=== PATIENT | female | born 1970 | race Caucasian/White ===

== ENCOUNTER 2017-06-17 09:00 | Emergency (ER) | payer SELFPAY ==
[~2017-06-17] VITALS: Ht 175.3 cm; Wt 145.2 kg
[~2017-06-17 09:00] MED LIST: ACE500 PO; ACET1TAB; CLI150 PO; CLIN300C99 PO; CYCL10TA29 PO; HYDR-4305 PO; HYDR-4309 PO; IBUP-1618 PO; IBUP800T37 PO; LOR5/325 PO; MEDR10TA57 PO; ORAGEL; OXYC-865 PO; PER PO; PRED20TA6 PO; PROM-110 PO; birth control PO
--- NOTE | 2017-06-17 09:17 | ER Report ---
History and Physical Time Seen By MD: 09:17 Hx. of Stated Complaint: N/V/D FOR 2-3 DAYS. RIGHT SIDED ABDOMINAL PAIN. HPI/ROS CHIEF COMPLAINT: Abdominal pain HISTORY OF PRESENT ILLNESS: This is a 46 year old female. She has had 3 days of abdominal pain. Epigastric and right upper quadrant. Steadily worsening. Nausea and vomiting. Worsens with trying to eat or drink. Only taking sips of water today, and this causes vomiting. Having explosive diarrhea the last 2 days as well. Has some congestion and cough with some congestion. Pain worsens with movement, but also will worsen in waves. Has had workup of gallbladder in the past with ultrasound and HIDA scan that did not show problems. No problems like this since, but pain is very similar. No problems with dysuria, frequency, urgency or other urinary problems. REVIEW OF SYSTEMS: Constitutional: No fever or chills. Eyes: No vision changes. ENT: No sore throat. No congestion. Cardiovascular: No chest pain. Respiratory: No shortness of breath. Gastrointestinal: As above. Genitourinary: As above. Musculoskeletal: No back pain. No extremity pain. Skin: No rashes. Neurological: No weakness. No headache. Allergies: Coded Allergies: Penicillins (Verified Allergy, Mild, 06/17/17) codeine (Verified Allergy, Mild, 06/17/17) erythromycin base (Verified Allergy, Mild, 06/17/17) nitrofurantoin (Unverified Allergy, Unknown, 06/17/17) Home Meds Reported Medications Gabapentin (GABAPENTIN) 600 Mg Tablet, 600 MG PO TID 06/17/17 Discontinued Scripts Ondansetron (ZOFRAN ODT) 4 Mg Tab.rapdis, 4 MG PO Q6H Y for NAUSEA/VOMITING, # 20 TAB.MARYJANE 0 Refills Prov:CATRACHITA CALDERON MD 06/17/17 Hydrocodone Bit/Acetaminophen (HYDROCODON-ACETAMINOPHEN 5-325) 1 Each Tablet, 1 EACH PO Q4H Y for PAIN, #12 TAB 0 Refills Prov:CATRACHITA CALDERON MD 06/17/17 Hydrocodone Bit/Acetaminophen (NORCO 5-325 TABLET) 1 Each Tablet, 1 EACH PO QID for 7 Days, #20 TAB Prov:LAUREN PITTS MD 12/15/16 Reviewed Nurses Notes: Yes Hx Smoking: Yes Smoking Status: Former Smoker Exposure to Second Hand Smoke?: No Hx Substance Use Disorder: No Hx Alcohol Use: No Constitutional Vital Sign - Last 24 Hours 06/17/17 06/17/17 06/17/17 06/17/17 09:00 09:09 09:09 09:30 Temp 98.5 Pulse ??? 91 Resp 18 B/P (MAP) 122/43 (69) 122/43 111/41 (64) Pulse Ox 98 95 O2 Delivery Room Air 06/17/17 06/17/17 06/17/17 06/17/17 10:00 10:30 10:33 11:11 Pulse 70 71 61 Resp 18 B/P (MAP) 99/63 (75) 101/54 (70) 114/53 (73) Pulse Ox 97 96 98 O2 Delivery Nasal Cannula O2 Flow Rate 1 Intake and Output 06/17/17 06/17/17 06/18/17 15:00 23:00 07:00 Intake Total 1000 ml Balance 1000 ml Physical Exam General Appearance: The patient is alert. She is in acute distress and tears from pain. Eyes: Pupils are equal, round. Reactive to light. No pallor, injection or icterus. Extraocular movements are intact. ENT: Mucous membranes are moist. Normal oral mucosa. Posterior oropharynx with some erythema and post nasal drainage. Tympanic membranes with effusions bilaterally, but no color change or bulging. Normal canals. Neck: Supple and non tender. Some shotty lymphadenopathy. Respiratory: Breathing easily and unlabored. Lungs are clear to auscultation. Cardiovascular: Regular rate and rhythm. No murmurs, gallops or rubs. Normal capillary refill. Gastrointestinal: Abdomen is soft, tender in the epigastric and right upper quadrant. Nondistended. Guarding, but no rebound. No masses or organomegaly. Normal active bowel sounds. No costovertebral angle tenderness with percussion. Neurological: Alert and oriented x3. Skin: Warm and dry. No rashes. Musculoskeletal: Extremities are nontender. No tenderness in palpation of the back and also the cervical, thoracic and lumbar spine. DIFFERENTIAL DIAGNOSIS: After history and physical exam, differential diagnosis was considered for abdominal pain including but not limited to cholecystitis, gastritis and urinary tract infection. With the congestion present, most likely this will represent a viral gastroenteritis/viral syndrome Medical Decision Making Data Points Result Diagram: 06/17/17 0912 06/17/17 0912 Laboratory Hematology Test 06/17/17 09:11 06/17/17 09:12 Stool Occult Blood (IFOB) Positive (NEGATIVE) Influenza Virus Type A (PCR) Negative (NEGATIVE) Influenza Virus Type B (PCR) Negative (NEGATIVE) Red Blood Count 5.53 M/uL (4.17-5.56) Mean Corpuscular Volume 89.4 fL (80.0-96.0) Mean Corpuscular Hemoglobin 30.6 pg (26.0-33.0) Mean Corpuscular Hemoglobin Concent 34.2 g/dL (32.0-36.0) Red Cell Distribution Width 13.6 % (11.5-14.5) Mean Platelet Volume 8.6 fL (7.2-11.1) Neutrophils (%) (Auto) 64.2 % (39.4-72.5) Lymphocytes (%) (Auto) 22.4 % (17.6-49.6) Monocytes (%) (Auto) 12.1 % (4.1-12.4) Eosinophils (%) (Auto) 0.7 % (0.4-6.7) Basophils (%) (Auto) 0.6 % (0.3-1.4) Nucleated RBC Relative Count (auto) 0.0 /100WBC Neutrophils # (Auto) 4.9 K/uL (2.0-7.4) Lymphocytes # (Auto) 1.7 K/uL (1.3-3.6) Monocytes # (Auto) 0.9 K/uL (0.3-1.0) Eosinophils # (Auto) 0.1 K/uL (0.0-0.5) Basophils # (Auto) 0.0 K/uL (0.0-0.1) Nucleated RBC Absolute Count (auto) 0.00 K/uL Urine Color Yellow Urine Clarity Slightly-cloudy Urine pH 6.0 pH (4.8-9.5) Urine Specific [place] 1.021 Urine Protein Negative mg/dL (NEGATIVE) Urine Glucose (UA) Negative mg/dL (NEGATIVE) Urine Ketones 20 mg/dL (NEGATIVE) Urine Blood Negative (NEGATIVE) Urine Nitrite Negative (NEGATIVE) Urine Bilirubin Negative (NEGATIVE) Urine Urobilinogen Negative mg/dL (0.2-1.9) Urine Leukocyte Esterase Negative (NEGATIVE) Urine RBC None /HPF (0-2/HPF) Urine WBC 1 /HPF (0-5/HPF) Urine Squamous Epithelial Cells Many /LPF (</=FEW) Urine Bacteria Negative /HPF (NONE-FEW) Urine Mucus Few /HPF (NONE-FEW) Sodium Level 133 mmol/L (137-145) Potassium Level 3.9 mmol/L (3.5-5.0) Chloride Level 101 mmol/L (98-107) Carbon Dioxide Level 21 mmol/L (22-31) Blood Urea Nitrogen 15 mg/dl (7-18) Creatinine 0.80 mg/dl (0.52-1.04) Glomerular Filtration Rate Calc > 60.0 Random Glucose 99 mg/dl (75-110) Lactate 1.4 mmol/L (0.7-2.1) Calcium Level 9.2 mg/dl (8.4-10.2) Total Bilirubin 1.0 mg/dl (0.2-1.3) Aspartate Amino Transf (AST/SGOT) 49 U/L (0-35) Alanine Aminotransferase (ALT/SGPT) 53 U/L (0-56) Alkaline Phosphatase 98 U/L (0-126) C-Reactive Protein 5.8 mg/dl (<1.0) Total Protein 8.0 gm/dl (6.3-8.2) Albumin 4.3 g/dl (3.5-5.0) Amylase Level 54 U/L (0-110) Lipase 80 U/L (23-300) Human Chorionic Gonadotropin, Qual Negative (NEGATIVE) Helicobacter pylori IgG Antibody Negative (NEGATIVE) Chemistry Test 06/17/17 09:11 06/17/17 09:12 Stool Occult Blood (IFOB) Positive (NEGATIVE) Influenza Virus Type A (PCR) Negative (NEGATIVE) Influenza Virus Type B (PCR) Negative (NEGATIVE) White Blood Count 7.6 k/uL (4.5-11.0) Red Blood Count 5.53 M/uL (4.17-5.56) Hemoglobin 16.9 g/dL (12.0-16.0) Hematocrit 49.4 % (34.0-47.0) Mean Corpuscular Volume 89.4 fL (80.0-96.0) Mean Corpuscular Hemoglobin 30.6 pg (26.0-33.0) Mean Corpuscular Hemoglobin Concent 34.2 g/dL (32.0-36.0) Red Cell Distribution Width 13.6 % (11.5-14.5) Platelet Count 219 K/uL (150-450) Mean Platelet Volume 8.6 fL (7.2-11.1) Neutrophils (%) (Auto) 64.2 % (39.4-72.5) Lymphocytes (%) (Auto) 22.4 % (17.6-49.6) Monocytes (%) (Auto) 12.1 % (4.1-12.4) Eosinophils (%) (Auto) 0.7 % (0.4-6.7) Basophils (%) (Auto) 0.6 % (0.3-1.4) Nucleated RBC Relative Count (auto) 0.0 /100WBC Neutrophils # (Auto) 4.9 K/uL (2.0-7.4) Lymphocytes # (Auto) 1.7 K/uL (1.3-3.6) Monocytes # (Auto) 0.9 K/uL (0.3-1.0) Eosinophils # (Auto) 0.1 K/uL (0.0-0.5) Basophils # (Auto) 0.0 K/uL (0.0-0.1) Nucleated RBC Absolute Count (auto) 0.00 K/uL Urine Color Yellow Urine Clarity Slightly-cloudy Urine pH 6.0 pH (4.8-9.5) Urine Specific [place] 1.021 Urine Protein Negative mg/dL (NEGATIVE) Urine Glucose (UA) Negative mg/dL (NEGATIVE) Urine Ketones 20 mg/dL (NEGATIVE) Urine Blood Negative (NEGATIVE) Urine Nitrite Negative (NEGATIVE) Urine Bilirubin Negative (NEGATIVE) Urine Urobilinogen Negative mg/dL (0.2-1.9) Urine Leukocyte Esterase Negative (NEGATIVE) Urine RBC None /HPF (0-2/HPF) Urine WBC 1 /HPF (0-5/HPF) Urine Squamous Epithelial Cells Many /LPF (</=FEW) Urine Bacteria Negative /HPF (NONE-FEW) Urine Mucus Few /HPF (NONE-FEW) Glomerular Filtration Rate Calc > 60.0 Lactate 1.4 mmol/L (0.7-2.1) Calcium Level 9.2 mg/dl (8.4-10.2) Total Bilirubin 1.0 mg/dl (0.2-1.3) Aspartate Amino Transf (AST/SGOT) 49 U/L (0-35) Alanine Aminotransferase (ALT/SGPT) 53 U/L (0-56) Alkaline Phosphatase 98 U/L (0-126) C-Reactive Protein 5.8 mg/dl (<1.0) Total Protein 8.0 gm/dl (6.3-8.2) Albumin 4.3 g/dl (3.5-5.0) Amylase Level 54 U/L (0-110) Lipase 80 U/L (23-300) Human Chorionic Gonadotropin, Qual Negative (NEGATIVE) Helicobacter pylori IgG Antibody Negative (NEGATIVE) Urinalysis Test 06/17/17 09:12 Urine Color Yellow Urine Clarity Slightly-cloudy Urine pH 6.0 pH (4.8-9.5) Urine Specific [place] 1.021 Urine Protein Negative mg/dL (NEGATIVE) Urine Glucose (UA) Negative mg/dL (NEGATIVE) Urine Ketones 20 mg/dL (NEGATIVE) Urine Blood Negative (NEGATIVE) Urine Nitrite Negative (NEGATIVE) Urine Bilirubin Negative (NEGATIVE) Urine Urobilinogen Negative mg/dL (0.2-1.9) Urine Leukocyte Esterase Negative (NEGATIVE) Urine RBC None /HPF (0-2/HPF) Urine WBC 1 /HPF (0-5/HPF) Urine Squamous Epithelial Cells Many /LPF (</=FEW) Urine Bacteria Negative /HPF (NONE-FEW) Urine Mucus Few /HPF (NONE-FEW) EKG/Imaging Imaging EXAMINATION: CT Abdomen and Pelvis With Contrast 06/17/2017 9:23 AM HISTORY: epigastric and right upper quadrant pain TECHNIQUE: Spiral scan was through the abdomen and pelvis during injection of nonionic iodinated intravenous contrast. Contrast: 75 mL of IV Isovue 370. One of the following dose optimization techniques was utilized in the performance of this exam: Automated exposure control; adjustment of the mA and/ or kV according to the patient's size; or use of an iterative reconstruction technique. Specific details can be referenced in the facility's radiology CT exam operational policy. COMPARISON STUDIES: Abdominal ultrasound 10/30/2014. FINDINGS: Liver / biliary: Gallbladder is full but not hydropic and does not appear to be inflamed by CT. No visible cholelithiasis or significant biliary dilatation. Elongated Chloe's lobe configuration of the liver. Incidental focal fat or perfusional variation in the left lobe along the fissure for ligamentum teres. Pancreas: negative Spleen: negative Adrenal glands: negative Kidneys / retroperitoneum: Small cortical and parapelvic cysts. No acute finding. Pelvic structures: Prior hysterectomy. Neither ovary is readily visible. Bowel / peritoneum / mesenteries: Mild diverticulosis of the distal colon. No acute focal diverticular inflammation or diffuse colitis. Normal appendix. Small bowel is unremarkable. Stomach is not distended. Vessels: Mesenteric vasculature is grossly patent. Musculoskeletal / Body wall: Small fatty medical hernia. Lumbosacral spondylosis. Scattered small bone islands. Lymph node assessment: negative Lower chest: negative IMPRESSION: No significant acute abnormality of the abdomen or pelvis. Report Dictated By: Carlos Melendez MD at 06/17/2017 10:12 AM ED Course/Re-evaluation Clinical Indication for ER IV: Hydration, IV Access ED Course After the initial history and physical exam, the patient was given Dilaudid 1mg IV and Zofran 4mg IV. She was given a liter of normal saline. Pain and nausea improved. CT scan and labs are unremarkable. Influenza negative. This appears to be a viral syndrome with gastroenteritis. Recommended follow-up with [facility] for re-evaluation. Home with Zofran and Lortab for nausea and pain. Decision to Disposition Date: Jun 17, 2017 Decision to Disposition Time: 10:57 Depart Departure Latest Vital Signs Vital Signs Date Time Temp Pulse Resp B/P (MAP) Pulse Ox O2 Delivery O2 Flow Rate FiO2 06/17/17 11:11 61 18 114/53 (73) 98 Nasal Cannula 1 06/17/17 09:09 98.5 Impression: Primary Impression: Gastroenteritis Additional Impression: Viral syndrome Condition: Improved Disposition: HOME OR SELF-CARE Referrals: VENTURA BAUM MD (PCP) Patient Instructions: Gastroenteritis (ED), Viral Syndrome (ED) Additional Instructions: Rest and increase fluid intake. Take Lortab 5/325 every 4 hours as needed for pain. Ibuprofen 200mg, take 4 every 8 hours as needed for pain. Take Zofran 4mg, one every 6 hours as needed for nausea. Follow-up with the [facility] as planned this week. Problem Qualifiers CATRACHITA CALDERON MD Jun 17, 2017 09:17
[2017-06-17] MEDS ORDERED: NS(*) 0.9% 1000 ML BAG 1,000 ML IV ONE (09:23)
[2017-06-17] MEDS ORDERED: ONDANSETRON 4 MG/2 ML VIAL IVP ONE (09:25)
[2017-06-17] MEDS ORDERED: HYDROmorphone(ER ONLY) 1 MG/ML IVP ONE (09:25)
[2017-06-17] MEDS ORDERED: PANTOPRAZOLE SOD 40 MG IV VIAL IVP ONE (09:25)
[2017-06-17 09:29] LABS: PLATELET COUNT, AUTOMATED 219 K/uL (150-450)
[2017-06-17] MEDS ORDERED: IOPAMIDOL 76% 75 ML INFUS BTL 75 ML ONE (09:40)
[2017-06-17] MEDS ORDERED: NS 0.9% 20 ML SDV 60 ML ONE (09:40)
--- NOTE | 2017-06-17 10:25 | RADIOLOGY IMAGING REPORT ---
[place] [facility] [place] NAME: Tequila Sanchez : 1970 MR: [id number] V: [id number] EXAM DATE: ORDERING PHYSICIAN: CATRACHITA CALDERON TECHNOLOGIST: Location: [facility] - [place] Patient: Tequila Sanchez : 1970 Visit/Account:[id number] Date of Sevice: 06/17/2017 EXAMINATION: CT Abdomen and Pelvis With Contrast 06/17/2017 9:23 AM HISTORY: epigastric and right upper quadrant pain TECHNIQUE: Spiral scan was through the abdomen and pelvis during injection of nonionic iodinated in travenous contrast. Contrast: 75 mL of IV Isovue 370. One of the following dose optimization techniques was utilized in the performance of this exam: Autom ated exposure control; adjustment of the mA and/or kV according to the patient's size; or use of an i terative reconstruction technique. Specific details can be referenced in the facility's radiology C T exam operational policy. COMPARISON STUDIES: Abdominal ultrasound 10/30/2014. FINDINGS: Liver / biliary: Gallbladder is full but not hydropic and does not appear to be inflamed by CT. No vi sible cholelithiasis or significant biliary dilatation. Elongated Chloe's lobe configuration of the liver. Incidental focal fat or perfusional variation in the left lobe along the fissure for ligamentu m teres. Pancreas: negative Spleen: negative Adrenal glands: negative Kidneys / retroperitoneum: Small cortical and parapelvic cysts. No acute finding. Pelvic structures: Prior hysterectomy. Neither ovary is readily visible. Bowel / peritoneum / mesenteries: Mild diverticulosis of the distal colon. No acute focal diverticula r inflammation or diffuse colitis. Normal appendix. Small bowel is unremarkable. Stomach is not diste nded. Vessels: Mesenteric vasculature is grossly patent. Musculoskeletal / Body wall: Small fatty medical hernia. Lumbosacral spondylosis. Scattered small bon e islands. Lymph node assessment: negative Lower chest: negative IMPRESSION: No significant acute abnormality of the abdomen or pelvis. Report Dictated By: Carlos Melendez MD at 06/17/2017 10:12 AM Report E-Signed By: Carlos Melendez MD at 06/17/2017 10:20 AM WSN:[id number]
[2017-06-17] MEDS ORDERED: APAP/HYDROCODONE 325/5 TAB PO ONE (10:55)
[2017-06-17] MEDS ORDERED: ONDANSETRON 4 MG ODT TABDP SL ONE (10:55)
[2017-06-17] MEDS ORDERED: ONDA4TAB PO (10:58)
[2017-06-17] MEDS ORDERED: LOR5/325 PO (10:58)
[2017-06-17] MEDS ORDERED: GABA-503 PO (11:07)
[2017-06-17 11:11] VITALS: BP 114/53
== END 2017-06-17 11:34 | disposition home or self-care (01) ==
LOC: ER 09:32
DX: K52.9 Noninfective gastroenteritis and colitis, unspecified (principal); B34.9 Viral infection, unspecified
CPT/HCPCS: 74177; 81001; 82150; 82274; 83605; 83690; 84703; 85025; 86140; 86677; 87502; 96361; 96374; 96375; 99284; C9113; J1170; J2405; J7030; J7050; Q9967; S0119; 82040; 82247; 82310; 82374; 82435; 82565; 82947; 84075; 84132; 84155; 84295; 84450; 84460; 84520

== ENCOUNTER 2017-12-11 08:20 | Emergency (ER) | payer SELFPAY ==
[~2017-12-11 08:20] MED LIST changes: +GABA-503 PO; +ONDA4TAB PO
[2017-12-11] MEDS ORDERED: ASPIRIN 81 MG CHEW PO ONE (08:55)
[2017-12-11] MEDS ORDERED: NS(*) 0.9% 1000 ML BAG 1,000 ML IV ONE (08:55)
[2017-12-11] MEDS ORDERED: NITROGLYCERIN 0.4 MG SUBL SL ONE ×2 (08:55→09:50)
[2017-12-11] MEDS ORDERED: ACETAMINOPHEN 325 MG TAB PO ONE (08:55)
--- NOTE | 2017-12-11 09:05 | EKG ---
[place] [facility] [place] JORDYN SCHILLING : [id number] MR: [id number] V: [id number] EXAM DATE: ORDERING PHYSICIAN: SKYE JAY TECHNOLOGIST: AILYN Test Reason : Blood Pressure : / mmHG Vent. Rate : 068 BPM Atrial Rate : 068 BPM P-R Int : 184 ms QRS Dur : 088 ms QT Int : 382 ms P-R-T Axes : 018 -40 000 degrees QTc Int : 406 ms Normal sinus rhythm Left axis deviation Inferior infarct , age undetermined Abnormal ECG No previous ECGs available Confirmed by ELISSA PALOMO ([id number]) on 12/11/2017 1:53:20 PM Referred By: Confirmed By:ELISSA PALOMO
[2017-12-11 09:12] LABS: PLATELET COUNT, AUTOMATED 230 K/uL (150-450)
--- NOTE | 2017-12-11 09:31 | RADIOLOGY IMAGING REPORT ---
FACILITY: [facility] PATIENT NAME: Tequila Sanchez : 1970 MR: [id number] V: [id number] EXAM DATE: ORDERING PHYSICIAN: SKYE JAY TECHNOLOGIST: Location: [facility] [place] Patient: Tequila Sanchez : 1970 Visit/Account:[id number] Date of Sevice: 12/11/2017 EXAMINATION: PA and Lateral Chest 12/11/2017 8:52 AM HISTORY: Chest Pain COMPARISON: None FINDINGS: Cardiomediastinal contours: Normal Lungs and pleura: Normal Bones/soft tissues: Degenerative spurring along the spine. IMPRESSION: No acute cardiopulmonary abnormality. Report Dictated By: Carlos Melendez MD at 12/11/2017 9:26 AM Report E-Signed By: Carlos Melendez MD at 12/11/2017 9:28 AM WSN:[id number]
--- NOTE | 2017-12-11 09:31 | ER Report ---
History and Physical Time Seen By MD: 08:55 Hx. of Stated Complaint: L SIDE CHEST PAIN, SOB, DIZZY HPI/ROS CHIEF COMPLAINT: Chest pain. HISTORY OF PRESENT ILLNESS: pt developed l sided chest/breast pain last night at 9pm. Pain radiates to l axilla, not to back. Pain has been constant though fluctuates. No prior episodes. Continues now (12 hrs), not associated with exertion. Associated with sob; specifically pain with taking a deep breath. No diaphoresis, occ lightheaded REVIEW OF SYSTEMS: Constitutional: No fever, no chills. Eyes: No discharge. ENT: No sore throat. Respiratory: As above. Cardiac: As above. Gastrointestinal: No abdominal pain, no vomiting. Genitourinary: No hematuria. Musculoskeletal: No back pain. Skin: No rashes. Neurological: No headache. Remainder of the 14 system rev: Yes Allergies: Coded Allergies: Penicillins (Verified Allergy, Mild, 06/17/17) codeine (Verified Allergy, Mild, 06/17/17) erythromycin base (Verified Allergy, Mild, 06/17/17) nitrofurantoin (Unverified Allergy, Unknown, 06/17/17) Home Meds Discontinued Reported Medications Gabapentin (GABAPENTIN) 600 Mg Tablet, 600 MG PO TID 06/17/17 Reviewed Nurses Notes: Yes Hx Smoking: Yes Smoking Status: Former Smoker Exposure to Second Hand Smoke?: No Hx Substance Use Disorder: No Hx Alcohol Use: No Family History of: Other (pt adopted and does not know) Constitutional Vital Sign - Last 24 Hours 12/11/17 12/11/17 12/11/17 12/11/17 08:20 08:23 08:24 08:30 Temp 98.1 Pulse ??? 72 Resp 22 B/P (MAP) 142/75 (97) 142/75 116/83 (94) Pulse Ox 97 O2 Delivery Ambu-Bag 12/11/17 12/11/17 12/11/17 12/11/17 08:35 08:50 09:00 09:05 Pulse 70 68 ??? Resp 31 14 15 B/P (MAP) 114/86 (95) ???/??? (1665) Pulse Ox 96 97 97 12/11/17 12/11/17 12/11/17 12/11/17 09:15 09:30 09:35 09:45 Pulse 64 Resp 14 B/P (MAP) 107/68 (81) 116/63 (80) 106/66 (79) Pulse Ox 98 12/11/17 12/11/17 12/11/17 12/11/17 09:50 10:00 10:05 10:07 Pulse ??? 60 65 Resp 0 B/P (MAP) 96/64 (75) Pulse Ox 96 12/11/17 12/11/17 12/11/17 12/11/17 10:12 10:15 10:27 10:30 Pulse 60 55 Resp 8 14 B/P (MAP) 98/71 (80) 105/71 (82) Pulse Ox 98 93 12/11/17 12/11/17 12/11/17 12/11/17 10:42 10:45 10:57 11:00 Pulse 56 58 Resp 15 37 B/P (MAP) 85/53 (64) 106/61 (76) Pulse Ox 92 96 12/11/17 12/11/17 12/11/17 11:12 11:20 11:27 Pulse 53 57 Resp 0 10 B/P (MAP) 109/57 (74) Pulse Ox 96 97 Physical Exam General Appearance: The patient is alert, has no immediate need for airway protection and no signs of toxicity. Pt does appear uncomfortable, holding l chest Eyes: Pupils equal and round no pallor or injection. ENT, Mouth: Mucous membranes are moist. Respiratory: There are no retractions, lungs are clear to auscultation. Cardiovascular: Regular rate and rhythm. no carotid bruit Gastrointestinal: Abdomen is soft and non tender, no masses, bowel sounds normal. Neurological: [ ] Skin: Warm and dry, no rashes. Musculoskeletal: Neck is supple non tender. Extremities are nontender, nonswollen and have full range of motion. [ ] DIFFERENTIAL DIAGNOSIS: After history and physical exam differential diagnosis was considered for chest pain including but not limited to myocardial ischemia, pericarditis pulmonary embolus, chest wall pain, pleural inflammation and pulmonary infectious causes. Medical Decision Making Data Points Result Diagram: 12/11/1782612/11/17826 Laboratory Hematology Test 12/11/17 08:27 12/11/17 12:08 Red Blood Count 5.06 M/uL (4.17-5.56) Mean Corpuscular Volume 90.8 fL (80.0-96.0) Mean Corpuscular Hemoglobin 31.8 pg (26.0-33.0) Mean Corpuscular Hemoglobin Concent 35.0 g/dL (32.0-36.0) Red Cell Distribution Width 13.7 % (11.5-14.5) Mean Platelet Volume 9.4 fL (7.2-11.1) Neutrophils (%) (Auto) 56.7 % (39.4-72.5) Lymphocytes (%) (Auto) 32.3 % (17.6-49.6) Monocytes (%) (Auto) 8.0 % (4.1-12.4) Eosinophils (%) (Auto) 2.2 % (0.4-6.7) Basophils (%) (Auto) 0.8 % (0.3-1.4) Nucleated RBC Relative Count (auto) 0.0 /100WBC Neutrophils # (Auto) 4.8 K/uL (2.0-7.4) Lymphocytes # (Auto) 2.7 K/uL (1.3-3.6) Monocytes # (Auto) 0.7 K/uL (0.3-1.0) Eosinophils # (Auto) 0.2 K/uL (0.0-0.5) Basophils # (Auto) 0.1 K/uL (0.0-0.1) Nucleated RBC Absolute Count (auto) 0.00 K/uL D-Dimer Quantitative (PE/DVT) < 0.27 ug/ml (0-0.50) Sodium Level 142 mmol/L (137-145) Potassium Level 4.2 mmol/L (3.5-5.0) Chloride Level 107 mmol/L (98-107) Carbon Dioxide Level 25 mmol/L (22-31) Blood Urea Nitrogen 15 mg/dl (7-18) Creatinine 0.80 mg/dl (0.52-1.04) Glomerular Filtration Rate Calc > 60.0 Random Glucose 103 mg/dl (75-110) Calcium Level 9.3 mg/dl (8.4-10.2) Total Bilirubin 0.5 mg/dl (0.2-1.3) Aspartate Amino Transf (AST/SGOT) 34 U/L (0-35) Alanine Aminotransferase (ALT/SGPT) 28 U/L (0-56) Alkaline Phosphatase 83 U/L (0-126) B-Type Natriuretic Peptide 26 pg/ml (0-100) Total Protein 7.5 g/dl (6.3-8.2) Albumin 4.4 g/dl (3.5-5.0) Troponin I < 0.012 ng/ml Chemistry Test 12/11/17 08:27 12/11/17 12:08 White Blood Count 8.4 k/uL (4.5-11.0) Red Blood Count 5.06 M/uL (4.17-5.56) Hemoglobin 16.1 g/dL (12.0-16.0) Hematocrit 46.0 % (34.0-47.0) Mean Corpuscular Volume 90.8 fL (80.0-96.0) Mean Corpuscular Hemoglobin 31.8 pg (26.0-33.0) Mean Corpuscular Hemoglobin Concent 35.0 g/dL (32.0-36.0) Red Cell Distribution Width 13.7 % (11.5-14.5) Platelet Count 230 K/uL (150-450) Mean Platelet Volume 9.4 fL (7.2-11.1) Neutrophils (%) (Auto) 56.7 % (39.4-72.5) Lymphocytes (%) (Auto) 32.3 % (17.6-49.6) Monocytes (%) (Auto) 8.0 % (4.1-12.4) Eosinophils (%) (Auto) 2.2 % (0.4-6.7) Basophils (%) (Auto) 0.8 % (0.3-1.4) Nucleated RBC Relative Count (auto) 0.0 /100WBC Neutrophils # (Auto) 4.8 K/uL (2.0-7.4) Lymphocytes # (Auto) 2.7 K/uL (1.3-3.6) Monocytes # (Auto) 0.7 K/uL (0.3-1.0) Eosinophils # (Auto) 0.2 K/uL (0.0-0.5) Basophils # (Auto) 0.1 K/uL (0.0-0.1) Nucleated RBC Absolute Count (auto) 0.00 K/uL D-Dimer Quantitative (PE/DVT) < 0.27 ug/ml (0-0.50) Glomerular Filtration Rate Calc > 60.0 Calcium Level 9.3 mg/dl (8.4-10.2) Total Bilirubin 0.5 mg/dl (0.2-1.3) Aspartate Amino Transf (AST/SGOT) 34 U/L (0-35) Alanine Aminotransferase (ALT/SGPT) 28 U/L (0-56) Alkaline Phosphatase 83 U/L (0-126) B-Type Natriuretic Peptide 26 pg/ml (0-100) Total Protein 7.5 g/dl (6.3-8.2) Albumin 4.4 g/dl (3.5-5.0) Troponin I < 0.012 ng/ml Coagulation Test 12/11/17 08:27 D-Dimer Quantitative (PE/DVT) < 0.27 ug/ml EKG/Imaging EKG Interpretation 12 lead EKG: Rhythm: normal sinus rhythm Van: lad QRS: normal ST segments: normal q wave III rpt ekg 1200 - borderline bradycardia, lad, otherwise nl manager music Interpretation: Normal Sinus Rhythm Imaging X-ray: chest was obtained. I viewed the images myself on the PACS system. My interpretation of the images is: nacpd. The radiologist interpretation had no clinically significant variation from this interpretation. ED Course/Re-evaluation ED Course pt presents with l sided chest pain, no prior events, not associated with exertion, no clear explanation. Considered multiple etiologies. Dimer neg and PERC neg; unlikely VTE. HEART score: hx 1 ekg 0 age 1 RF 1 Trop 0 = 2; reasonable for d/c with f/u [facility] pcm for stress test. Pt aware of need to arrange and for close f/u, understands strict rtn prec. Is comfortable at time of d/c; unlikely acs though understands anginal cp cannot be ruled out and requires further evalutaion. Counceled to quit tobac. Decision to Disposition Date: Dec 11, 2017 Decision to Disposition Time: 13:04 Depart Departure Latest Vital Signs Vital Signs Date Time Temp Pulse Resp B/P (MAP) Pulse Ox O2 Delivery O2 Flow Rate FiO2 12/11/17 11:27 57 10 97 12/11/17 11:20 109/57 (74) 12/11/17 08:24 98.1 Ambu-Bag Impression: Primary Impression: Chest pain Condition: Improved Disposition: HOME OR SELF-CARE Patient Instructions: Chest Pain (ED), How to Stop Smoking (ED) Additional Instructions: Please return immediately for worsening sympotms or any concerns. As we discussed, contact your primary doctor within the next 24 hours to arrange follow up for stress testing for your heart. Problem Qualifiers Primary Impression: Chest pain Chest pain type: unspecified Qualified Codes: R07.9 - Chest pain, unspecified SKYE JAY MD Dec 11, 2017 09:31
--- NOTE | 2017-12-11 12:12 | EKG ---
FACILITY: [facility] - [place] PATIENT NAME: JORDYN SCHILLING : [id number] MR: [id number] V: [id number] EXAM DATE: ORDERING PHYSICIAN: SKYE JAY TECHNOLOGIST: AILYN Test Reason : ER Blood Pressure : / mmHG Vent. Rate : 055 BPM Atrial Rate : 055 BPM P-R Int : 172 ms QRS Dur : 092 ms QT Int : 440 ms P-R-T Axes : 055 -34 003 degrees QTc Int : 420 ms Sinus bradycardia with sinus arrhythmia Left axis deviation No ST-T abnormalities When compared with ECG of 11-DEC-2017 08:28, No significant change was found Confirmed by ELISSA PALOMO ([id number]) on 12/11/2017 2:03:06 PM Referred By: Grant JAY Confirmed By:ELISSA PALOMO
[2017-12-11 13:11] VITALS: BP 138/85
== END 2017-12-11 13:10 | disposition home or self-care (01) ==
LOC: ER 08:31
DX: R07.9 Chest pain, unspecified (principal)
CPT/HCPCS: 71046; 83880; 84484; 85025; 85379; 93005; 96360; 96361; 99284; J7030; 82040; 82247; 82310; 82374; 82435; 82565; 82947; 84075; 84132; 84155; 84295; 84450; 84460; 84520

== ENCOUNTER → 2018-01-08 | Outpatient (REF) ==
--- NOTE | 2018-01-08 11:18 | RT STRESS TEST REPORT ---
FACILITY: [facility] - [place] PATIENT NAME: JORDYN SCHILLING : [id number] MR: [id number] V: [id number] EXAM DATE: ORDERING PHYSICIAN: LURDES NIX TECHNOLOGIST: Flaquito Acquisition Time: 2018-01-08 08:48:53 Total Exercise Time: 00:06:11 Test Indications: Chest Pain / Discomfort Medications: statin for cholesterol Protocol: BRUCE2 Max HR: 139 BPM 81% of Pred: 171 BPM Max BP: 198/081 mmHG Max Work Load: 7.2 METS Stress was performed using Michel 2 Protocol. She did not experience any chest pain or significant dys pnea. Test was stopped secondary to knee pain. BP response was somewhat exaggerated. No significant EKG changes were noted. No dysrhythmias were se en. Recovery was uneventful. IMPRESSION: Submaximal stress test, but no significant abnormalities noted. Confirmed by MYLES HERNANDEZ ([id number]) on 01/08/2018 11:17:01 AM Referred By: Carlos Nix Overread By: MYLES HERNANDEZ
== END ==
LOC: RESP 02:25 → EDSTATUS 09:00
PROVIDERS: ATTEND Internal Medicine
DX: R07.9 Chest pain, unspecified (principal)
CPT/HCPCS: 93017

== ENCOUNTER 2019-01-05 11:27 | Emergency (ER) | payer SELFPAY ==
[~2019-01-05 11:27] MED LIST changes: +DIA5 PO; -GABA-503 PO; +GABA-533 PO; -HYDR-4305 PO; -HYDR-4309 PO; +HYDR-627 PO; +HYDR-653 PO
--- NOTE | 2019-01-05 11:51 | ER Report ---
History and Physical Time Seen By MD: 11:45 Hx. of Stated Complaint: LEFT KNEE PAIN AFTER STANDING UP FROM BENCH APPROX 45 MIN HPI/ROS CHIEF COMPLAINT: Left knee pain HISTORY OF PRESENT ILLNESS: This is a 48-year-old female presents to the emergency department for left knee pain. Patient states that about 45 minutes prior to arrival, she was at work, stood up off of a bench suddenly felt pain in her left knee majority of the discomfort is in the posterior knee. She states she has arthritis and known bone spurs in her knee that causes chronic pain however this is different. She is tearful and crying, even light touch seems to cause pain to her left knee into her left calf and foot. No recent injuries. No rashes. No fevers or chills. No nausea or vomiting. REVIEW OF SYSTEMS: Respiratory: No cough, no dyspnea. Cardiovascular: No chest pain, no palpitations. Gastrointestinal: No vomiting, no abdominal pain. Musculoskeletal: As above. Allergies: Coded Allergies: Penicillins (Verified Allergy, Mild, 01/05/19) codeine (Verified Allergy, Mild, 01/05/19) erythromycin base (Verified Allergy, Mild, 01/05/19) nitrofurantoin (Unverified Allergy, Unknown, 01/05/19) Home Meds Active Scripts Cyclobenzaprine Hcl (CYCLOBENZAPRINE HCL) 10 Mg Tablet, 5-10 MG PO TID PRN for MUSCLE SPASMS, #9 TAB Prov:ALTAF LEVY [facility] 01/05/19 Meloxicam (MELOXICAM) 7.5 Mg Tablet, 7.5 MG PO QDAY for 14 Days, #14 TAB Prov:ALTAF LEVY [facility] 01/05/19 Discontinued Scripts Diazepam (VALIUM) 5 Mg Tablet, 5 MG PO 2-3XD for Muscle Relaxant, #15 TAB 0 Refills Prov:SKYE CURRY MD 05/10/18 Hydrocodone Bit/Acetaminophen (HYDROCODON-ACETAMINOPHEN 5-325) 1 Each Tablet, 1- 2 EACH PO Q4-6H PRN for PAIN, #20 TAB 0 Refills No more than 6 tablets in a 24 hour period Prov:SKYE CURRY MD 05/10/18 Past Medical/Surgical History The patient has a past medical and surgical history of pancreatitis,, disease, uterine fibroids, hysterectomy, sciatica, herniated disc and low back, "bleeding disorder", depression, anxiety, tubal ligation, tonsillectomy. Reviewed Nurses Notes: Yes Hx Smoking: Yes Smoking Status: Former Smoker Exposure to Second Hand Smoke?: No Hx Substance Use Disorder: No Hx Alcohol Use: No Constitutional Vital Sign - Last 24 Hours 01/05/19 01/05/19 11:41 14:59 Temp 98.2 Pulse 82 74 Resp 12 12 B/P (MAP) 139/117 128/108 (115) Pulse Ox 92 92 O2 Delivery Room Air Physical Exam General Appearance: The patient is alert, has no immediate need for airway protection and no current signs of toxicity. Eyes: Pupils equal and round no injection. Respiratory: Chest is non tender, lungs are clear to auscultation. Cardiac: regular rate and rhythm. Gastrointestinal: Abdomen is soft and non tender, no masses, bowel sounds normal. Musculoskeletal: Neck: Neck is supple and non tender. Extremities: There is generalized swelling to the left knee, no other deform ities or obvious identified, there is pain with palpation to the posterior knee and calf, no erythema or cellulitic appearance. The knee is not hot to touch. Unable to get a thorough knee exam, due to the patient's discomfort, unable to fully evaluate valgus and varus and full extent of knee laxity at this time. Skin: No rashes or lesions. DIFFERENTIAL DIAGNOSIS: After history and physical exam differential diagnosis was considered for septic arthritis, contusion, bursitis, meniscus tear, subluxation. Medical Decision Making EKG/Imaging Imaging PATIENT NAME: Tequila Sanchez : 1970 MR: [id number] V: [id number] EXAM DATE: ORDERING PHYSICIAN: ALTAF LEVY TECHNOLOGIST: Location: [facility] Patient: Tequila Sanchez : 1970 Visit/Account:[id number] Date of Sevice: 01/05/2019 Venous Doppler ultrasound left lower extremity Indication: Left leg and posterior knee pain.. Comparison: 12/15/2016. Findings: Duplex Doppler and color flow imaging was performed. The common femoral, femoral, and popliteal veins are all patent and compressible with normal Doppler wave forms. There are normal responses to augmentation. The posterior tibial and peroneal veins are patent in the calf. The proximal greater saphenous vein is also normal. Subcutaneous tissues are unremarkable. IMPRESSION: 1. No evidence of deep venous thrombosis of the left lower extremity. Report Dictated By: Robbie Hendrix at 01/05/2019 2:26 PM Report E-Signed By: Robbie Hendrix at 01/05/2019 2:28 PM WSN:[id number] [facility] PATIENT NAME: Tequila Sanchez : 1970 MR: [id number] V: [id number] EXAM DATE: ORDERING PHYSICIAN: ALTAF LEVY TECHNOLOGIST: Location: [facility] Patient: Tequila Sanchez : 1970 Visit/Account:[id number] Date of Sevice: 01/05/2019 KNEE 4 VIEW LEFT HISTORY: pain COMPARISON: 05/10/2018 FINDINGS: Left knee: No acute fracture or dislocation. Mild tricompartmental degenerative changes. No evidence of AVN. Large joint effusion. No loose body. No patellar subluxation. IMPRESSION: 1. No acute osseous abnormality. 2. Large joint effusion. 3. Mild tricompartmental degenerative changes. Report Dictated By: Eugene Lipscomb MD at 01/05/2019 12:41 PM Report E-Signed By: Eugene Lipscomb MD at 01/05/2019 12:44 PM WSN:[id number] ED Course/Re-evaluation ED Course The patient was admitted to room. A history and physical obtained. Differential diagnoses were considered. An x-ray of the left knee was negative for any acute osseous abnormalities, there was a large joint effusion noted. I did review the results with the patient. She continues to have posterior knee and calf pain, I did recommend an ultrasound, the ultrasound was negative for DVT. Patient was given 6 mg IM Toradol, 60 mg IM Norflex, she was also given 1 by mouth hydrocodone. We discussed knee immobilizers, she states she has immobilizer and crutches at home, she was placed in an Johan wrap, instructed to follow-up with her primary care provider and [facility] for reevaluation, return to ER for any concerns or worsening symptoms, she was agreeable with this plan care and discharged home. 01/05/2019 1:29:36 pm I did review the results of the x-ray with the patient, there is a large transfusion, she's had these in the past, she continues to have some posterior calf and knee pain, I did tell her that we will go ahead and ultrasound the leg to evaluate for DVT, she states she does have "a bleeding disorder". Decision to Disposition Date: Jan 05, 2019 Decision to Disposition Time: 14:44 Depart Departure Latest Vital Signs Vital Signs Date Time Temp Pulse Resp B/P (MAP) Pulse Ox O2 Delivery O2 Flow Rate FiO2 01/05/19 14:59 74 12 128/108 (115) 92 Room Air 01/05/19 11:41 98.2 Impression: Primary Impression: Left knee pain Additional Impression: Effusion, left knee Condition: Improved Disposition: HOME OR SELF-CARE New Scripts Cyclobenzaprine Hcl (CYCLOBENZAPRINE HCL) 10 Mg Tablet 5-10 MG PO TID PRN for MUSCLE SPASMS, #9 TAB Prov: ALTAF LEVY- 01/05/19 Meloxicam (MELOXICAM) 7.5 Mg Tablet 7.5 MG PO QDAY for 14 Days, #14 TAB Prov: ALTAF LEVY-BC 01/05/19 Patient Instructions: Knee Pain (ED) Additional Instructions: Use the knee immobilizer when you get home, as well as the crutches until he follow-up with your primary care provider or orthopedics. Use Johan wrap. Not using the immobilizer. Use the meloxicam as needed for pain. Use the Flexeril as needed for severe pain and muscle spasms. Drink plenty of water. Get plenty of rest. Return to the emergency department for any concerns or worsening symptoms per Problem Qualifiers Primary Impression: Left knee pain Chronicity: acute Qualified Codes: M25.562 - Pain in left knee ALTAF LEVYP- Jan 05, 2019 11:51
[2019-01-05] MEDS ORDERED: ORPHENADRINE 60MG/2ML INJ IM ONE (12:00)
[2019-01-05] MEDS ORDERED: KETOROLAC 60 MG/2 ML VIAL IM ONE (12:00)
--- NOTE | 2019-01-05 12:52 | RADIOLOGY IMAGING REPORT ---
FACILITY: [facility] - [place] PATIENT NAME: Tequila Sanchez : 1970 MR: [id number] V: [id number] EXAM DATE: ORDERING PHYSICIAN: ALTAF LEVY TECHNOLOGIST: Location: [facility] Patient: Tequila Sanchez : 1970 Visit/Account:[id number] Date of Sevice: 01/05/2019 KNEE 4 VIEW LEFT HISTORY: pain COMPARISON: 05/10/2018 FINDINGS: Left knee: No acute fracture or dislocation. Mild tricompartmental degenerative changes. No evidence of AVN. Large joint effusion. No loose body. No patellar subluxation. IMPRESSION: 1. No acute osseous abnormality. 2. Large joint effusion. 3. Mild tricompartmental degenerative changes. Report Dictated By: Eugene Lipscomb MD at 01/05/2019 12:41 PM Report E-Signed By: Eugene Lipscomb MD at 01/05/2019 12:44 PM WSN:[id number]
[2019-01-05] MEDS ORDERED: APAP/HYDROCODONE 325/5 TAB PO ONE (13:25)
--- NOTE | 2019-01-05 14:36 | RADIOLOGY IMAGING REPORT ---
FACILITY: [facility] PATIENT NAME: Tequila Sanchez : 1970 MR: [id number] V: [id number] EXAM DATE: ORDERING PHYSICIAN: ALTAF LEVY TECHNOLOGIST: Location: [facility] Patient: Tequila Sanchez : 1970 Visit/Account:[id number] Date of Sevice: 01/05/2019 Venous Doppler ultrasound left lower extremity Indication: Left leg and posterior knee pain.. Comparison: 12/15/2016. Findings: Duplex Doppler and color flow imaging was performed. The common femoral, femoral, and popl iteal veins are all patent and compressible with normal Doppler wave forms. There are normal respons es to augmentation. The posterior tibial and peroneal veins are patent in the calf. The proximal greater saphenous vein is also normal. Subcutaneous tissues are unremarkable. IMPRESSION: 1. No evidence of deep venous thrombosis of the left lower extremity. Report Dictated By: Robbie Hendrix at 01/05/2019 2:26 PM Report E-Signed By: Robbie Hendrix at 01/05/2019 2:28 PM WSN:[id number]
[2019-01-05] MEDS ORDERED: CYCL10TA29 PO (14:50)
[2019-01-05] MEDS ORDERED: MELO-205 PO (14:50)
[2019-01-05 14:59] VITALS: BP 128/108
== END 2019-01-05 15:01 | disposition home or self-care (01) ==
LOC: ER 11:52
DX: M25.562 Pain in left knee (principal); M25.462 Effusion, left knee
CPT/HCPCS: 73564; 93971; 96372; 99284; J1885; J2360